=== PATIENT | female | born 1990 | race African-American/Black ===

== ENCOUNTER → 2018-01-27 | Outpatient (CLI) | payer OTHER ==
--- NOTE | 2018-01-27 17:00 | US ---
EXAMINATION TYPE: US pelvic complete DATE OF EXAM: 01/27/2018 COMPARISON: NONE CLINICAL HISTORY: R10.2 Pelvic pain. TECHNIQUE: . Transabdominal sonographic images of the pelvis were acquired. Transvaginal sonographi c images were medically necessary to better assess the following anatomy: endometrium and ovaries Date of LMP: depo shot in November EXAM MEASUREMENTS: Uterus: 6.7 x 2.7 x 4.3 cm Endometrial Stripe: 0.1 cm Right Ovary: 2.0 x 2.1 x 2.4 cm Left Ovary: 2.3 x 1.5 x 2.2 cm 1. Uterus: Anteverted small fibroid anterior 1.5x 1.4 x 0.7 cm 2. Endometrium: wnl 3. Right Ovary: small cyst 1.1 x 0.7 x 0.9 cm 4. Left Ovary: small cyst 0.6 x 0.5 x 0.7 cm 5. Bilateral Adnexa: wnl 6. Posterior cul-de-sac: wnl IMPRESSION: Small anterior uterine fibroid. No solid adnexal mass or free fluid. Normal endometrium.
== END | disposition home or self-care (01) ==
LOC: RADUSWWP 16:17
PROVIDERS: ATTEND Obstetrics & Gynecology
DX: D25.9 Leiomyoma of uterus, unspecified (principal)
CPT/HCPCS: 76830; 76856

== ENCOUNTER 2018-05-07 12:47 | Emergency (ER) | payer OTHER ==
[2018-05-07 13:06] VITALS: BP 140/90; PULSE 66; RESP 20; TEMP 98.8
--- NOTE | 2018-05-07 13:41 | ED ---
General Adult HPI - General Chief complaint: Neuro Symptoms/Deficit Stated complaint: Right Arm/Hand Pain, Numbness Source: patient Mode of arrival: ambulatory Limitations: no limitations - History of Present Illness Initial comments: This is a pleasant 28-year-old female presents emergency department complaining of bilateral arm, shoulder, and hand pain. Patient states that she has had this going on for about one month. Patient states that it is worse after activity and sometimes after sleeping. Patient states when she wakes up in the morning she is getting numbness and tingling in her right hand and has discomfort. Patient denies any chest pain or shortness of breath. No fever or chills. No chance of . Patient has no significant past medical history. Patient does not smoke. Patient denies any other health issues. Patient states that she started working at a [employer] facility in October and for the last 4-5 weeks has been on the same tasks which requires several repetitive movements. - Related Data Previous Rx's Medication Instructions Recorded Naproxen [Naprosyn] 500 mg PO Q12HR PRN #24 tab 05/07/18 Allergies Allergy/AdvReac Type Severity Reaction Status Date / Time No Known Allergies Allergy Verified 05/07/18 13:12 Review of Systems ROS Statement: Those systems with pertinent positive or pertinent negative responses have been documented in the HPI. ROS Other: All systems not noted in ROS Statement are negative. Past Medical History Past Medical History: No Reported History History of Any Multi-Drug Resistant Organisms: None Reported Past Surgical History: No Surgical Hx Reported Past Anesthesia/Blood Transfusion Reactions: No Reported Reaction Past Psychological History: No Psychological Hx Reported Smoking Status: Never smoker Past Alcohol Use History: None Reported Past Drug Use History: None Reported - Past Family History Mother Family Medical History: Hypertension General Exam Limitations: no limitations General appearance: alert, in no apparent distress Head exam: Present: atraumatic, normocephalic, normal inspection Eye exam: Present: normal appearance, PERRL, EOMI. Absent: scleral icterus, conjunctival injection, periorbital swelling ENT exam: Present: normal exam, mucous membranes moist Neck exam: Present: normal inspection. Absent: tenderness, meningismus, lymphadenopathy Respiratory exam: Present: normal lung sounds bilaterally. Absent: respiratory distress, wheezes, rales, rhonchi, stridor Cardiovascular Exam: Present: regular rate, normal rhythm, normal heart sounds. Absent: systolic murmur, diastolic murmur, rubs, gallop, clicks GI/Abdominal exam: Present: soft, normal bowel sounds. Absent: distended, tenderness, guarding, rebound, rigid Extremities exam: Present: normal inspection, full ROM, normal capillary refill , other (No evidence of atrophy, patient does have full range of motion with regards to the bilateral shoulders, elbows, cervical spine, wrist, and hands.). Absent: tenderness, pedal edema, joint swelling, calf tenderness Back exam: Present: normal inspection Neurological exam: Present: alert, oriented X3, CN II-XII intact, other ( Positive Tinel's and Phalen's bilaterally, distal sensation intact) Psychiatric exam: Present: normal affect, normal mood Skin exam: Present: warm, dry, intact, normal color. Absent: rash Course Vital Signs 05/07/18 13:03 Temperature 98.8 F Pulse Rate 66 Respiratory 20 Rate Blood Pressure 140/90 O2 Sat by Pulse 100 Oximetry Medical Decision Making - Medical Decision Making Patient presents with symptoms consistent with median neuropathy. Patient was counseled. Patient counseled on follow-up. Given follow-up with orthopedics. Return and follow-up parameters discussed. Disposition Clinical Impression: Carpal tunnel syndrome on both sides Disposition: HOME SELF-CARE Condition: Good Instructions: Paresthesia (ED) Additional Instructions: Make an appointment with the on-call orthopedic physician as directed. You will need to adhere to the work restrictions as directed. Ensure that you wear the splints at night. Elevate the hands and wrists whenever possible. Apply ice if there is pain and inflammation.Return to the ER at once if the symptoms worsen or problems or difficulties arise. Prescriptions: Naproxen [Naprosyn] 500 mg PO Q12HR PRN #24 tab PRN Reason: Pain Is patient prescribed a controlled substance at d/c from ED?: No Referrals: Kyle Martin MD [Medical Doctor] - 05/11/18 Time of Disposition: 13:45 Decision Time: 13:46
== END 2018-05-07 13:41 | disposition home or self-care (01) ==
LOC: EC 12:47
DX: G56.03 Carpal tunnel syndrome, bilateral upper limbs (principal)
CPT/HCPCS: 99283

== ENCOUNTER → 2019-02-17 | Outpatient (CLI) | payer OTHER ==
[2019-02-17 23:58] LABS: HIV 1 AB Non-Reactive (Non-Reactive); HIV AB P24 Non-Reactive (Non-Reactive); HIV P24 AG Non-Reactive (Non-Reactive)
== END | disposition home or self-care (01) ==
LOC: LABWHC1 15:27
PROVIDERS: ATTEND Obstetrics & Gynecology
DX: Z11.3 Encounter for screening for infections with a predominantly sexual mode of transmission (principal); Z20.2 Contact with and (suspected) exposure to infections with a predominantly sexual mode of transmission
CPT/HCPCS: 36415; 86780; 87390

== ENCOUNTER → 2020-02-26 | Outpatient (CLI) | payer OTHER | END | disposition home or self-care (01) | LOC: LABWHC1 10:18 | PROVIDERS: ATTEND Obstetrics & Gynecology | DX: N91.2 Amenorrhea, unspecified (principal) | CPT/HCPCS: 36415; 84702 ==

== ENCOUNTER → 2020-08-13 | Day surgery (SDC) | payer OTHER ==
[2020-08-08 16:02] VITALS: BMI 24.1
--- NOTE | 2020-08-09 17:02 | P.HPOB ---
History of Present Illness H&P Date: 08/09/20 Chief Complaint: Family planning Emili is a 30-year-old female who has completed her family planning and desires permanent sterilization. Risks/benefits/alternatives to a laparoscopic tubal occlusion were reviewed with the patient in detail and all questions were answered for her prior to proceeding to the operative room. She is aware that this is designed to be a permanent procedure and has a failure rate of approximately 5 per 1000. The risks did include but were not limited to bleeding or infection, damage to bladder or bowel, vascular injuries, nerve damage possibly further surgery. All questions were answered for her and she is stable to go to the operating room Past Medical History Past Medical History: No Reported History History of Any Multi-Drug Resistant Organisms: None Reported Past Surgical History: No Surgical Hx Reported Past Anesthesia/Blood Transfusion Reactions: No Reported Reaction Additional Past Anesthesia/Blood Transfusion Reaction / Comment(s): Has never had general anesthesia. Past Psychological History: Anxiety Smoking Status: Never smoker Past Alcohol Use History: None Reported Past Drug Use History: Marijuana Additional Drug Use History / Comment(s): Usually uses Marijuana once in awhile to help sleep. - Past Family History Mother Family Medical History: Hypertension Medications and Allergies Home Medications Medication Instructions Recorded Confirmed Type No Known Home Medications 08/08/20 08/08/20 History Allergies Allergy/AdvReac Type Severity Reaction Status Date / Time No Known Allergies Allergy Verified 08/08/20 15:52 Exam Osteopathic Statement: *. No significant issues noted on an osteopathic structural exam other than those noted in the History and Physical/Consult. - OBG Physical Exam Breast: both: normal (no masses) Abdomen: bowel sounds normal, no diffuse tenderness, no bruit present, no guarding noted, no hepatomegaly, no splenomegaly, no mass Vulva: both: normal Vagina: normal moisture, no discharge Cervix: no lesion, no discharge Uterus: normal size, normal contour Adnexa: both: normal Anus/Rectum: normal perianal skin, no rectal mass, no hemorrhoids, heme negative
[~2020-08-13] MED LIST: BUPIVACAINE (PF) 0.25% 30 ML VIAL SQ ONE; DEXAMETHASONE SOD PHOSPHATE 4 MG/ML 1 ML VIAL IV ONE; GLYCOPYRROLATE 0.2 MG/ML 2 ML VIAL ONE; HYDROcodone/APAP 5-325MG 1 EACH TAB ONE; HYDROcodone/APAP 5-325MG 1 EACH TAB PO ONE; HYDROmorphone 0.5 MG/0.5 ML SYRINGE IVP PRN; KETOROLAC 15 MG/ML 1 ML VIAL ONE; LACTATED RINGERS 1,000 ML IV SCH; LIDOCAINE 1% (10MG/ML) FOR IV START INTRADERMA PRN; LIDOCAINE 1% INJ 10MG/ML (20 ML MDV) ONE; MIDAZOLAM 2 MG/2 ML VIAL ONE; NEOSTIGMINE 1 MG/ML 10 ML VIAL ONE; ONDANSETRON 4 MG/2 ML VIAL IVP ONE; PROPOFOL 10 MG/ML 20 ML VIAL IV ONE; Pre Op ABX Message 1 EACH MISC MISCELLANE ONE; ROCURONIUM 10 MG/ML (10 ML VIAL) IV ONE; SCOPOLAMINE 1.5MG/72HR PATCH TRANSDERM ONE; SUCCINYLCHOLINE CHLORIDE 100 MG/5 ML SYR IV ONE; fentaNYL (PF) 50 MCG/ML 2 ML AMP ONE
[2020-08-13 08:06] VITALS: TEMP 97.5
--- NOTE | 2020-08-13 08:11 | P.OP ---
Date of Procedure: 08/13/20 Preoperative Diagnosis: family planning Postoperative Diagnosis: same Procedure(s) Performed: larparoscopic tubaligation with filshie clips Anesthesia: PHILIPP Surgeon: Fred Wan Estimated Blood Loss (ml): 3 IV fluids (ml): 200 Urine output (ml): 50 Pathology: none sent Condition: stable Disposition: same day Operative Findings: Normal female pelvic anatomy Description of Procedure: Patient was taken to the operating suite where a general anasthetic was found to be adequate. she was prepped and draped in the normal sterile fashion and placed in the dorsal lithotomy position. initially a speculum was placed in the vagina and the cervix was grasped with a single tooth tenaculum it was then sounded to 7 cm and the uterine manipulator was placed. instraments were then removed and the bladder was drained with a red rubber catheter. Gloves were then changed and attention was turned to the abdominal portion of the procedure. 2 cc of local was then injected periumbilically and a 5mm inc was then made. under direct visualization with an optical trocar and sleeve the camera was inserted. Once peritoneal placement was assured the second port was inserted thru an 8mm inc 3cm above the pubic bone again under direct visualization. she was then placed in a steep trendelingberg position and pelvic anatomy visualized. first the right fallopian tube then the left had a filshie clip placed 2cm from uterine cornu then same on left tube. no bleeding is noted in the mesosalpinx so all instruments were removed and gas was allowed to expel from the abdomen. 5 deep breaths were provided. 4-0 vicryl was then used to reapproximate the skin incisions and 6cc of local were injected around the inc. all instruments were then removed and following verification of sponge, lap, and needle counts were correct times 2, she was taken to the recovery room in stable and satisfactory condition. Plan - Discharge Summary Discharge Rx Participant: Yes New Discharge Prescriptions: New Ibuprofen [Motrin] 600 mg PO Q6HR PRN #30 tab PRN Reason: Pain HYDROcodone/APAP 5-325MG [[place] 5-325] 1 tab PO Q4HR PRN 3 Days #18 tab PRN Reason: Pain Discharge Medication List HYDROcodone/APAP 5-325MG [[place] 5-325] 1 tab PO Q4HR PRN 3 Days #18 tab 08/13/20 [Rx] Ibuprofen [Motrin] 600 mg PO Q6HR PRN #30 tab 08/13/20 [Rx] Follow up Appointment(s)/Referral(s): Fred Wan DO [Doctor of Osteopathic Medicine] - 2 Weeks Discharge Disposition: HOME SELF-CARE
[2020-08-13 10:58] VITALS: BP 142/82; RESP 20
[2020-08-13 10:59] VITALS: PULSE 85
== END | disposition home or self-care (01) ==
LOC: OR 06:06
PROVIDERS: ATTEND Obstetrics & Gynecology
DX: Z30.2 Encounter for sterilization (principal); F41.9 Anxiety disorder, unspecified; Z82.49 Family history of ischemic heart disease and other diseases of the circulatory system
CPT/HCPCS: 81025; 58671; J2250; J1100; J2710; J2405; J2001; J3010; J1885; J0330; J2704

== ENCOUNTER 2023-07-31 17:51 | Emergency (ER) | payer OTHER ==
--- NOTE | 2023-07-31 17:55 | ED ---
General Adult HPI - General Source: RN notes reviewed <Katelyn Diaz - Last Filed: 07/31/23 17:54> - General Source: patient, RN notes reviewed <Sofy Logan - Last Filed: 07/31/23 21:39> - General Stated complaint: STD testing Time Seen by Provider: 07/31/23 17:54 - History of Present Illness Initial comments: 33-year-old -[place] female with no significant past medical history presents the emergency department with a chief complaint STD testing. Patient reports that she wiped and saw a white discharge. Denies any vaginal bleeding or pain. Patient would like to be tested for chlamydia. (Katelyn Diaz) Patient is a 33-year-old female presenting to the ER with a chief complaint of STD testing. Patient states her new partner reports that his past partners have not been on his with him about their STD status and he has chlamydia. She would like be committed for all STDs. Patient does endorse a white vaginal discharge. Patient denies any dysuria, bleeding, pain, itching. (Sofy Logan) - Related Data Previous Rx's Medication Instructions Recorded HYDROcodone/APAP 5-325MG [Rule 1 tab PO Q4HR PRN 3 Days #18 tab 08/13/20 5-325] Ibuprofen [Motrin] 600 mg PO Q6HR PRN #30 tab 08/13/20 Doxycycline [Vibramycin] 100 mg PO BID #20 capsule 07/31/23 metroNIDAZOLE [Flagyl] 500 mg PO TID #30 tab 07/31/23 Allergies Allergy/AdvReac Type Severity Reaction Status Date / Time No Known Allergies Allergy Verified 08/13/20 06:46 Review of Systems ROS Other: All systems not noted in ROS Statement are negative. <Katelyn Diaz - Last Filed: 07/31/23 17:54> ROS Other: All systems not noted in ROS Statement are negative. <Sofy Logan - Last Filed: 07/31/23 21:39> ROS Statement: Those systems with pertinent positive or pertinent negative responses have been documented in the HPI. Past Medical History Past Medical History: No Reported History History of Any Multi-Drug Resistant Organisms: None Reported Past Surgical History: No Surgical Hx Reported Past Anesthesia/Blood Transfusion Reactions: No Reported Reaction Additional Past Anesthesia/Blood Transfusion Reaction / Comment(s): Has never had general anesthesia. Past Psychological History: Anxiety Smoking Status: Never smoker Past Alcohol Use History: None Reported Past Drug Use History: Marijuana Additional Drug Use History / Comment(s): Usually uses Marijuana once in awhile to help sleep. - Past Family History Mother Family Medical History: Hypertension <Katelyn Diaz - Last Filed: 07/31/23 17:54> General Exam <Katelyn Diaz - Last Filed: 07/31/23 17:54> General appearance: alert, in no apparent distress Head exam: Present: atraumatic, normocephalic, normal inspection Respiratory exam: Present: normal lung sounds bilaterally. Absent: respiratory distress, wheezes, rales, rhonchi, stridor Cardiovascular Exam: Present: regular rate, normal rhythm, normal heart sounds. Absent: systolic murmur, diastolic murmur, rubs, gallop, clicks GI/Abdominal exam: Present: soft, normal bowel sounds. Absent: distended, tenderness, guarding, rebound, rigid External exam: Present: normal external exam, other (white discharge from vagina) Speculum exam: Present: cervical discharge (thick white) By manual exam: Present: normal by manual exam Neurological exam: Present: alert, oriented X3, CN II-XII intact Psychiatric exam: Present: normal affect, normal mood Skin exam: Present: warm, dry, intact, normal color. Absent: rash <Sofy Logan - Last Filed: 07/31/23 21:39> - General Exam Comments Initial Comments: Visual Physical Exam Vital signs reviewed General: Well-appearing, nontoxic, no acute distress. Head: Normocephalic, atraumatic Eyes: PERRLA, EOMI ENT: Airway patent Chest: Nonlabored breathing Skin: No visual rash, normal skin tone Neuro: Alert and oriented 3 Musculoskeletal: No gross abnormalities (Katelyn Diaz) Course Vital Signs 07/31/23 18:22 Temperature 98.5 F Pulse Rate 59 L Respiratory 20 Rate Blood Pressure 128/82 O2 Sat by Pulse 99 Oximetry Medical Decision Making <Katelyn Diaz - Last Filed: 07/31/23 17:54> <Sofy Logan - Last Filed: 07/31/23 21:39> - Medical Decision Making I performed the quick note portion of this exam, verbal signature Katelyn Diaz PA-C (Katelyn Diaz) Was pt. sent in by a medical professional or institution ([facility], [facility], urgent care, hospital, or [facility]...) When possible be specific @ -No Did you speak to anyone other than the patient for history (EMS, parent, family, police, friend...)? What history was obtained from this source @ -No Did you review nursing and triage notes (agree or disagree)? Why? @ -I reviewed and agree with nursing and triage notes Were old charts reviewed (outside hosp., previous admission, EMS record, old EKG, old radiological studies, urgent care reports/EKG's, [facility] records)? Report findings @ -No old charts were reviewed Differential Diagnosis (chest pain, altered mental status, abdominal pain women, abdominal pain men, vaginal bleeding, weakness, fever, dyspnea, syncope, headache, dizziness, GI bleed, back pain, seizure, CVA, palpatations, mental health, musculoskeletal)? @ -Chlamydia, gonorrhea, UTI, Trichomonas, HIV, syphilis, PID EKG interpreted by me (3pts min.). @ -None X-rays interpreted by me (1pt min.). @ -None done CT interpreted by me (1pt min.). @ -None done U/S interpreted by me (1pt. min.). @ -None done What testing was considered but not performed or refused? (CT, X-rays, U/S, labs)? Why? @ -None What meds were considered but not given or refused? Why? @ -None Did you discuss the management of the patient with other professionals (professionals i.e. [facility], [facility], lab, RT, psych nurse, professor of social work, pop singer, teacher, chief development officer, pillowcase cleaner)? Give summary @ -No Was smoking cessation discussed for >3mins.? @ -No Was critical care preformed (if so, how long)? @ -No Were there social determinants of health that impacted care today? How? (Homelessness, low income, unemployed, alcoholism, drug addiction, transportation, low edu. Level, literacy, decrease access to med. care, [facility], rehab)? @ -No Was there de-escalation of care discussed even if they declined (Discuss DNR or withdrawal of care, Hospice)? DNR status @ -No What co-morbidities impacted this encounter? (DM, HTN, Smoking, COPD, CAD, Cancer, CVA, ARF, Chemo, Hep., AIDS, mental health diagnosis, sleep apnea, morbid obesity)? @ -None Was patient admitted / discharged? Hospital course, mention meds given and route, prescriptions, significant lab abnormalities, going to OR and other pertinent info. @ -Discharged. Patient is a 33-year-old female presented ER with chief of STD evaluation. Upon examination, patient's vitals were stable. Speculum exam showed thick white discharge. There is no cervical motion tenderness or adnexal tenderness. Urine analysis and Trichomonas were negative. Gonorrhea, chlamydia, syphilis, HIV labs were ordered and are pending. Patient received 1g IM Rocephin prior to discharge. She will be prescribed doxycycline and Flagyl at discharge. I encouraged patient to suggest her partner also get tested. I discussed with patient that remainder of labs will be reported back to her if they are positive by phone. Patient discharged stable condition with follow-up to PCP. I advised patient to follow-up with [facility] if symptoms persist. Return parameters were discussed. Patient expressed understanding and agreement with care plan. Undiagnosed new problem with uncertain prognosis? @ -No Drug Therapy requiring intensive monitoring for toxicity (Heparin, Nitro, Insulin, Cardizem)? @ -No Were any procedures done? @ -No Diagnosis/symptom? @ -STD evaluation/ white vaginal discharge Acute, or Chronic, or Acute on Chronic? @ -Acute Uncomplicated (without systemic symptoms) or Complicated (systemic symptoms)? @ -Uncompensated Side effects of treatment? @ -No Exacerbation, Progression, or Severe Exacerbation? @ -No Poses a threat to life or bodily function? How? (Chest pain, [place], [place], pneumonia, PE, COPD, DKA, ARF, appy, cholecystitis, CVA, Diverticulitis, Homicidal, Suicidal, threat to staff... and all critical care pts) @ -No (Sofy Logan) - Lab Data Lab Results 07/31/23 07/31/23 07/31/23 Range/Units 20:39 20:39 20:39 Urine Color Yellow Urine Appearance Clear (Clear) Urine pH 7.5 (5.0-8.0) Ur Specific [place] 1.015 (1.001-1.035) Urine Protein Negative (Negative) Urine Glucose (UA) Negative (Negative) Urine Ketones Negative (Negative) Urine Blood Negative (Negative) Urine Nitrite Negative (Negative) Urine Bilirubin Negative (Negative) Urine Urobilinogen <2.0 (<2.0) mg/dL Ur Leukocyte Esterase Negative (Negative) Urine HCG, Qual Not Detected (Not Detectd) Trichomonas Ag (Rapid) Negative (Negative) Disposition <Katelyn Diaz - Last Filed: 07/31/23 17:54> Is patient prescribed a controlled substance at d/c from ED?: No Time of Disposition: 21:33 <Sofy Logan - Last Filed: 07/31/23 21:39> Clinical Impression: STD exposure, Vaginal Discharge Disposition: HOME SELF-CARE Condition: Stable Additional Instructions: Please return to the Emergency Department if symptoms worsen or any other concerns. Please complete full course of antibiotics. Please follow-up with [facility] if symptoms persist. Prescriptions: metroNIDAZOLE [Flagyl] 500 mg PO TID #30 tab Doxycycline [Vibramycin] 100 mg PO BID #20 capsule Referrals: None,Stated [Primary Care Provider] - 1-2 days
[2023-07-31 18:43] VITALS: TEMP 98.5
[2023-07-31 21:21] LABS: Appearance,Urine Clear (Clear); Bilirubin,Urine Negative (Negative); Blood,Urine Negative (Negative); Color,Urine Yellow; Glucose,Urine (UA) Negative (Negative); Ketones,Urine Negative (Negative); PH, Urine 7.5 (5.0-8.0); Protein,Urine Negative (Negative); Specific Gravity,Urine 1.015 (1.001-1.035); Urobilinogen,Urine <2.0 mg/dL (<2.0)
[2023-07-31 21:22] LABS: Leukocyte Esterase,Urine Negative (Negative); Nitrite,Urine Negative (Negative)
[2023-07-31] MEDS ORDERED: cefTRIAXone 1,000 MG VIAL (IM USE) IM STA (21:30)
[2023-07-31 22:26] VITALS: BP 145/92; PULSE 61; RESP 16
== END 2023-07-31 21:42 | disposition home or self-care (01) ==
LOC: EC 17:51
DX: N89.8 Other specified noninflammatory disorders of vagina (principal); Z20.2 Contact with and (suspected) exposure to infections with a predominantly sexual mode of transmission; Z86.59 Personal history of other mental and behavioral disorders; F12.90 Cannabis use, unspecified, uncomplicated
CPT/HCPCS: 36415; 87535; 81003; 81025; 87808; 87491; 87591; 86780; 87070; 99283; 96372; J0696

== ENCOUNTER 2024-02-17 20:24 | Emergency (ER) | payer OTHER ==
[2024-02-17 20:46] VITALS: RESP 16
--- NOTE | 2024-02-17 20:56 | ED ---
Eye Problem HPI - General Chief complaint: Eye Problems Stated complaint: eye pain Time Seen by Provider: 02/17/24 20:43 Source: patient Mode of arrival: ambulatory Limitations: no limitations - History of Present Illness Initial comments: 33-year-old female presenting with chief complaint of pain and swelling surrounding right eye. She states that yesterday she thought she had a right upper eyelid. States that today the swelling has worsened and she is having tenderness around the eyes. She is having no pain to the eyeball itself. No difficulty with extraocular movements. No fevers. No headache or neck pain. No vision or hearing changes. She denies any injury. - Related Data Previous Rx's Medication Instructions Recorded HYDROcodone/APAP 5-325MG [[place] 1 tab PO Q4HR PRN 3 Days #18 tab 08/13/20 5-325] Ibuprofen [Motrin] 600 mg PO Q6HR PRN #30 tab 08/13/20 Doxycycline [Vibramycin] 100 mg PO BID #20 capsule 07/31/23 metroNIDAZOLE [Flagyl] 500 mg PO TID #30 tab 07/31/23 Amoxicillin 875 mg PO Q12HR 7 Days #14 tablet 02/17/24 Sulfamethox-Tmp 800-160Mg [Bactrim 1 tab PO Q12HR 7 Days #14 tab 02/17/24 DS 800-160 mg] Allergies Allergy/AdvReac Type Severity Reaction Status Date / Time No Known Allergies Allergy Verified 02/17/24 20:38 Review of Systems ROS Statement: Those systems with pertinent positive or pertinent negative responses have been documented in the HPI. ROS Other: All systems not noted in ROS Statement are negative. Past Medical History Past Medical History: No Reported History History of Any Multi-Drug Resistant Organisms: None Reported Past Surgical History: Tubal Ligation Past Anesthesia/Blood Transfusion Reactions: No Reported Reaction Additional Past Anesthesia/Blood Transfusion Reaction / Comment(s): Has never had general anesthesia. Past Psychological History: Anxiety Smoking Status: Never smoker Past Alcohol Use History: None Reported Past Drug Use History: Marijuana - Past Family History Mother Family Medical History: Hypertension General Exam Limitations: no limitations General appearance: alert, in no apparent distress Head exam: Present: atraumatic, normocephalic Eye exam: Present: PERRL, EOMI, periorbital swelling, periorbital tenderness Neck exam: Present: normal inspection. Absent: meningismus Respiratory exam: Absent: respiratory distress Cardiovascular Exam: Present: regular rate Neurological exam: Present: alert, oriented X3 Psychiatric exam: Present: normal affect, normal mood Skin exam: Present: normal color Course Vital Signs 02/17/24 02/17/24 20:38 21:24 Temperature 98.5 F 98.4 F Pulse Rate 74 77 Respiratory 16 16 Rate Blood Pressure 110/72 110/71 O2 Sat by Pulse 99 99 Oximetry Medical Decision Making - Medical Decision Making Was pt. sent in by a medical professional or institution ([facility], [facility], urgent care, hospital, or prison...) When possible be specific @ -No Did you speak to anyone other than the patient for history (EMS, parent, family, police, friend...)? What history was obtained from this source @ -No Did you review nursing and triage notes (agree or disagree)? Why? @ -I reviewed and agree with nursing and triage notes Were old charts reviewed (outside hosp., previous admission, EMS record, old EKG, old radiological studies, urgent care reports/EKG's, prison records)? Report findings @ -No old charts were reviewed Differential Diagnosis (chest pain, altered mental status, abdominal pain women, abdominal pain men, vaginal bleeding, weakness, fever, dyspnea, syncope, headache, dizziness, GI bleed, back pain, seizure, CVA, palpatations, mental health, musculoskeletal)? @ -Differential includes hordeolum, chalazion, periorbital cellulitis, orbital cellulitis, erythema and all-inclusive list EKG interpreted by me (3pts min.). @ -As above X-rays interpreted by me (1pt min.). @ -None done CT interpreted by me (1pt min.). @ -None done U/S interpreted by me (1pt. min.). @ -None done What testing was considered but not performed or refused? (CT, X-rays, U/S, labs)? Why? @ -None What meds were considered but not given or refused? Why? @ -None Did you discuss the management of the patient with other professionals (professionals i.e. [facility], [facility], lab, RT, psych nurse, social media analyst, agricultural education professor, teacher, aboriginal home school liaison officer, shelter case manager)? Give summary @ -No Was smoking cessation discussed for >3mins.? @ -No Was critical care preformed (if so, how long)? @ -No Were there social determinants of health that impacted care today? How? (Homelessness, low income, unemployed, alcoholism, drug addiction, transportation, low edu. Level, literacy, decrease access to med. care, fdc, rehab)? @ -No Was there de-escalation of care discussed even if they declined (Discuss DNR or withdrawal of care, Hospice)? DNR status @ -No What co-morbidities impacted this encounter? (DM, HTN, Smoking, COPD, CAD, Cancer, CVA, ARF, Chemo, Hep., AIDS, mental health diagnosis, sleep apnea, morbid obesity)? @ -None Was patient admitted / discharged? Hospital course, mention meds given and route, prescriptions, significant lab abnormalities, going to OR and other pertinent info. @ -33-year-old female presenting chief complaint of pain and swelling surrounding the right eye which has worsened today. Symptoms started yesterday. On exam she does have periorbital swelling and tenderness. No difficulty with extraocular motions, no pain to the eyeball. Patient will be treated for periorbital cellulitis with amoxicillin and Bactrim. Provided with erythromycin eye ointment for potential hordeolum as well. Discharged home. Follow-up with PCP. Report back to ER with any new or worsening symptoms. Discussed return parameters and answered all questions. Patient conveyed verbal understanding and agreed to the plan. I discussed this case in detail with my attending Dr. Ratliff Undiagnosed new problem with uncertain prognosis? @ -No Drug Therapy requiring intensive monitoring for toxicity (Heparin, Nitro, Insulin, Cardizem)? @ -No Were any procedures done? @ -No Diagnosis/symptom? @ -Periorbital cellulitis Acute, or Chronic, or Acute on Chronic? @ -Acute Uncomplicated (without systemic symptoms) or Complicated (systemic symptoms)? @ -Uncomplicated Side effects of treatment? @ -No Exacerbation, Progression, or Severe Exacerbation? @ -No Poses a threat to life or bodily function? How? (Chest pain, USA, CT, pneumonia, PE, COPD, DKA, ARF, appy, cholecystitis, CVA, Diverticulitis, Homicidal, Suicidal, threat to staff... and all critical care pts) @ -Low likelihood Disposition Clinical Impression: Periorbital cellulitis Disposition: HOME SELF-CARE Condition: Good Instructions (If sedation given, give patient instructions): Periorbital Cellulitis in Adults (ED) Additional Instructions: Follow-up with PCP. Report back to ER with any new or worsening symptoms. Apply erythromycin ointment to the eye 4 times daily for 7 days. Take medication as prescribed. Apply warm compresses over the eye to help express any drainage from a potential stye. Prescriptions: Amoxicillin 875 mg PO Q12HR 7 Days #14 tablet Sulfamethox-Tmp 800-160Mg [Bactrim DS 800-160 mg] 1 tab PO Q12HR 7 Days #14 tab Is patient prescribed a controlled substance at d/c from ED?: No Referrals: None,Stated [Primary Care Provider] - 1-2 days Reyna Lara MD [STAFF PHYSICIAN] - 1-2 days Time of Disposition: 20:55
[2024-02-17 21:27] VITALS: BP 110/71; PULSE 77; TEMP 98.4
[2024-02-17] MEDS: AMOXICILLIN 875 MG TAB PO STA (21:36)
[2024-02-17] MEDS: ERYTHROMYCIN 5 MG/GM OPHTH OINT 3.5 GM TUBE RIGHT EYE STA (21:36)
[2024-02-17] MEDS: SULFAMETHOX-TMP 800-160MG 1 EACH TAB PO STA (21:36)
== END 2024-02-17 21:39 | disposition home or self-care (01) ==
LOC: EC 20:24
DX: L03.213 Periorbital cellulitis (principal)
CPT/HCPCS: 99283